=== PATIENT | male | born 1980 | race Caucasian/White ===

== ENCOUNTER 2023-03-26 11:13 | Observation (INO) | payer SELFPAY ==
[2023-03-26] VITALS (10 sets, daily range): BP systolic 152–183; BP diastolic 64–91
[~2023-03-26] VITALS: Ht 165.1 cm; Wt 63.8 kg
[~2023-03-26 11:13] MED LIST: BACTRIM DS1 TAB PO; BETAMETH DIP0.05 % EX; KETOCONAZOLE2 % EX; MUPIROCIN2 % EX; NYSTAT/TRIA2 EX; no home meds
[2023-03-26 12:44] LABS: ALBUMIN 3.7 g/dL (3.2-5.0); ALKALINE PHOSPHATASE 100 u/l (38-126); ANION GAP 8 (6-22 (CALC)); BILIRUBIN, TOTAL 0.4 mg/dL (0.2-1.3); BUN 21 mg/dL (9-20); BUN/CREATININE RATIO 23 (12-20 (CALC)); CALCULATED LDLCHOLESTEROL 115 mg/dL (62-129 (CALC)); CARBON DIOXIDE 30 mmol/l (22-30); CHLORIDE 103 mmol/l (95-108); CHOLESTEROL HDL RATIO 6.4 (<4.4 (CALC)); CREATININE 0.9 mg/dL (0.7-1.3); GFR FOR AFR.AMER. > 60 ML/MIN (>=60 (CALC)); GFR OTHER RACES > 60 ML/MIN (>=60 (CALC)); HDL CHOLESTEROL 27 mg/dL (39.0-59.0); POTASSIUM 4.4 mmol/l (3.5-5.1); SGOT/AST 22 u/l (17-59); SODIUM 136 mmol/l (137-146); TOTAL CHOLESTEROL 171 mg/dl (0-199); TOTAL PROTEIN 6.7 g/dL (6.3-8.2); TOTAL TRIGLYCERIDES 143 mg/dl (0-149); VLDL CHOLESTROL 29 mg/dl (5-56 (CALC))
[2023-03-26 12:45] LABS: BASO% 0.6 % (0-3); EOS% 1.1 % (0-8); HEMATOCRIT 37.4 % (39.0-50.0); IMMATURE GRANULOCYTES 0.2 % (0.0-5.0); LYMPH% 19.9 % (15-41); MEAN CELL VOLUME 86.8 fL CALC (80.0-100.0); MEAN CORPUSCULAR HGB 27.8 pG CALC (26.0-32.0); MEAN CORPUSCULAR HGB CONC 32.1 g/dL CAL (32.0-36.0); MONO% 6.1 % (2-13); NEUT# 10.24 thou/uL (1.82-7.42); NEUT% 72.1 % (42-76); RED BLOOD COUNT 4.31 mill/uL (4.70-6.10); RED CELL DISTRI WIDTH 13.4 % (11.5-15.5)
[2023-03-26 12:48] LABS: PROTHROMBIN TIME 9.6 SECONDS (9.0-12.5)
[2023-03-26 16:08] LABS: URINE BILIRUBIN - DIPSTICK Negative (NEGATIVE); URINE BLOOD DIPSTICK Trace-intact (NEGATIVE); URINE GLUCOSE - DIPSTICK 100 mg/dL (NEGATIVE); URINE KETONE Negative (NEGATIVE); URINE LEUK ESTERASE Negative (NEGATIVE); URINE NITRITE - DIPSTICK Negative (Negative); URINE PH 6.5 (4.5-8.0); URINE PROTEIN - DIPSTICK >=300 mg/dL (NEG-TRACE); URINE SPECIFIC GRAVITY 1.015; URINE UROBILINOGEN - DIPSTICK 0.2 E.U./dL (0.2)
[2023-03-26 16:13] LABS: URINE COLOR Yellow; URINE MUCUS MODERATE hpf (NONE-FEW); URINE RBC 0-2 RBC/hpf (0-5)
[2023-03-27] VITALS (8 sets, daily range): BP systolic 158–179; BP diastolic 67–81
[2023-03-27 06:34] LABS: HEMATOCRIT 33.1 % (39.0-50.0); HEMOGLOBIN 10.8 g/dl (14.0-18.0); MEAN CELL VOLUME 86.4 fL CALC (80.0-100.0); MEAN CORPUSCULAR HGB 28.2 pG CALC (26.0-32.0); MEAN CORPUSCULAR HGB CONC 32.6 g/dL CAL (32.0-36.0); RED BLOOD COUNT 3.83 mill/uL (4.70-6.10); RED CELL DISTRI WIDTH 13.2 % (11.5-15.5)
[2023-03-27 07:09] LABS: ALKALINE PHOSPHATASE 86 u/l (38-126); ANION GAP 7 (6-22 (CALC)); BILIRUBIN, TOTAL 0.3 mg/dL (0.2-1.3); BUN 15 mg/dL (9-20); BUN/CREATININE RATIO 18 (12-20 (CALC)); C-REACTIVE PROTEIN 3.7 mg/dL (0-0.9); CALCULATED LDLCHOLESTEROL 107 mg/dL (62-129 (CALC)); CARBON DIOXIDE 29 mmol/l (22-30); CHLORIDE 106 mmol/l (95-108); CHOLESTEROL HDL RATIO 6.3 (<4.4 (CALC)); CREATININE 0.8 mg/dL (0.7-1.3); GFR FOR AFR.AMER. > 60 ML/MIN (>=60 (CALC)); GFR OTHER RACES > 60 ML/MIN (>=60 (CALC)); HDL CHOLESTEROL 24 mg/dL (39.0-59.0); MAGNESIUM 1.7 mg/dL (1.6-2.3); POTASSIUM 4.2 mmol/l (3.5-5.1); SGOT/AST 17 u/l (17-59); SODIUM 138 mmol/l (137-146); TOTAL CHOLESTEROL 153 mg/dl (0-199); TOTAL PROTEIN 5.4 g/dL (6.3-8.2); TOTAL TRIGLYCERIDES 109 mg/dl (0-149); VLDL CHOLESTROL 22 mg/dl (5-56 (CALC))
[2023-03-27 07:19] LABS: ALBUMIN 2.8 g/dL (3.2-5.0)
[2023-03-28 00:18] VITALS: BP 163/77
[2023-03-28 04:37] VITALS: BP 178/86
[2023-03-28 05:56] LABS: BASO% 0.7 % (0-3); EOS% 2.3 % (0-8); HEMATOCRIT 33.6 % (39.0-50.0); IMMATURE GRANULOCYTES 0.1 % (0.0-5.0); MEAN CELL VOLUME 85.9 fL CALC (80.0-100.0); MEAN CORPUSCULAR HGB 28.1 pG CALC (26.0-32.0); MEAN CORPUSCULAR HGB CONC 32.7 g/dL CAL (32.0-36.0); MONO% 6.6 % (2-13); NEUT# 6.13 thou/uL (1.82-7.42); NEUT% 60.3 % (42-76); RED BLOOD COUNT 3.91 mill/uL (4.70-6.10)
[2023-03-28 06:26] LABS: ALKALINE PHOSPHATASE 90 u/l (38-126); ANION GAP 7 (6-22 (CALC)); BUN 16 mg/dL (9-20); BUN/CREATININE RATIO 18 (12-20 (CALC)); CARBON DIOXIDE 28 mmol/l (22-30); CHLORIDE 106 mmol/l (95-108); CREATININE 0.9 mg/dL (0.7-1.3); GFR FOR AFR.AMER. > 60 ML/MIN (>=60 (CALC)); GFR OTHER RACES > 60 ML/MIN (>=60 (CALC)); MAGNESIUM 1.7 mg/dL (1.6-2.3); POTASSIUM 4.1 mmol/l (3.5-5.1); SGOT/AST 18 u/l (17-59); SODIUM 137 mmol/l (137-146); TOTAL PROTEIN 5.5 g/dL (6.3-8.2)
[2023-03-28 06:34] LABS: BILIRUBIN, TOTAL 0.1 mg/dL (0.2-1.3)
[2023-03-28 07:04] VITALS: BP 132/62
[2023-03-28 10:29] VITALS: BP 152/68
[2023-03-28] MEDS ORDERED: ASPIRIN81 MG PO (12:46)
[2023-03-28] MEDS ORDERED: PLAVIX75 MG PO (12:46)
[2023-03-28] MEDS ORDERED: ATORVASTATIN CA40 MG PO (12:46)
[2023-03-28] MEDS ORDERED: METFORMIN HCL1000 MG PO (12:47)
[2023-03-28] MEDS ORDERED: AMOX/K CLAV875 M1 PO (12:55)
== END 2023-03-28 15:55 | disposition home or self-care (01) | DRG 65 ==
LOC: ED 11:13 → ED-I 14:00 → ED 15:00 → MS2 15:01 → ED-I 15:01 → MS2 18:07
PROVIDERS: Family Medicine; Nurse Practitioner Family; ADMIT Student in an Organized Health Care Education/Training Program; ATTEND Student in an Organized Health Care Education/Training Program
DX: I63.512 Cerebral infarction due to unspecified occlusion or stenosis of left middle cerebral artery (principal); G81.91 Hemiplegia, unspecified affecting right dominant side; R42 Dizziness and giddiness; L03.116 Cellulitis of left lower limb; R29.700 NIHSS score 0; E11.621 Type 2 diabetes mellitus with foot ulcer; L97.529 Non-pressure chronic ulcer of other part of left foot with unspecified severity; E11.65 Type 2 diabetes mellitus with hyperglycemia; I10 Essential (primary) hypertension; E78.5 Hyperlipidemia, unspecified; G93.89 Other specified disorders of brain; T38.3X6A Underdosing of insulin and oral hypoglycemic [antidiabetic] drugs, initial encounter; Z91.120 Patient's intentional underdosing of medication regimen due to financial hardship
CPT/HCPCS: G0378; J1650; J3370; Q9967

== ENCOUNTER 2023-11-21 12:42 | Observation (INO) | payer SELFPAY ==
[2023-11-21] VITALS (17 sets, daily range): BP systolic 152–187; BP diastolic 79–92
[~2023-11-21] VITALS: Ht 165.1 cm; Wt 72.5 kg
[~2023-11-21 12:42] MED LIST changes: +AMOX/K CLAV875 M1 PO; +ASPIRIN81 MG PO; +ATORVASTATIN CA40 MG PO; +METFORMIN HCL1000 MG PO; +PLAVIX75 MG PO
[2023-11-21 13:09] LABS: BASO% 0.4 % (0-3); EOS% 0.6 % (0-8); HEMATOCRIT 31.9 % (39.0-50.0); HEMOGLOBIN 10.3 g/dl (14.0-18.0); IMMATURE GRANULOCYTES 0.3 % (0.0-5.0); LYMPH% 13.3 % (15-41); MEAN CELL VOLUME 88.9 fL CALC (80.0-100.0); MEAN CORPUSCULAR HGB 28.7 pG CALC (26.0-32.0); MEAN CORPUSCULAR HGB CONC 32.3 g/dL CAL (32.0-36.0); MONO% 7.8 % (2-13); NEUT# 10.99 thou/uL (1.82-7.42); NEUT% 77.6 % (42-76); RED BLOOD COUNT 3.59 mill/uL (4.70-6.10); RED CELL DISTRI WIDTH 12.7 % (11.5-15.5)
[2023-11-21] MEDS ORDERED: SODIUM CHLORIDE 0.9% 1,000 ML IV ONE (13:15)
[2023-11-21] MEDS ORDERED: ASPIRIN 81 MG/TAB PO ONE (13:20)
[2023-11-21] MEDS ORDERED: CLOPIDOGREL BISULFATE 75 MG/TAB TAB PO ONE (13:25)
[2023-11-21 13:27] LABS: ALBUMIN 3.6 g/dL (3.2-5.0); ALKALINE PHOSPHATASE 81 u/l (38-126); BUN 32 mg/dL (9-20); CALCULATED LDLCHOLESTEROL 64 mg/dL (62-129 (CALC)); CARBON DIOXIDE 27 mmol/l (22-30); CHLORIDE 107 mmol/l (95-108); CHOLESTEROL HDL RATIO 4.1 (<4.4 (CALC)); HDL CHOLESTEROL 33 mg/dL (39.0-59.0); SGOT/AST 26 u/l (17-59); SODIUM 137 mmol/l (137-146); TOTAL CHOLESTEROL 134 mg/dl (0-199); TOTAL PROTEIN 6.5 g/dL (6.3-8.2); TOTAL TRIGLYCERIDES 185 mg/dl (0-149); VLDL CHOLESTROL 37 mg/dl (5-56 (CALC))
[2023-11-21 13:28] LABS: PROTHROMBIN TIME 9.6 SECONDS (9.0-12.5)
[2023-11-21 13:33] LABS: ANION GAP 8 (6-22 (CALC)); BILIRUBIN, TOTAL 0.4 mg/dL (0.2-1.3); BUN/CREATININE RATIO 15 (12-20 (CALC)); CREATININE 2.1 mg/dL (0.7-1.3); ESTIMATED GFR 40 ML/MIN (>=90 (CALC)); POTASSIUM 5.3 mmol/l (3.5-5.1)
[2023-11-21] MEDS ORDERED: NICOTINE TRANSDERMAL 21 MG/PATCH TD ONE (14:50)
[2023-11-21] MEDS ORDERED: SODIUM CHLORIDE 0.9% 1,000 ML IV PRN (15:35)
[2023-11-21] MEDS ORDERED: MAGNESIUM HYDROXIDE 30 ML UDC PO PRN (15:35)
[2023-11-21] MEDS ORDERED: DEXTROSE 250 ML IV PRN ×2 (15:35→15:40)
[2023-11-21] MEDS ORDERED: ACETAMINOPHEN 325 MG/TAB PO PRN (15:35)
[2023-11-21] MEDS ORDERED: NICOTINE TRANSDERMAL 21 MG/PATCH TD PRN (15:40)
[2023-11-21] MEDS ORDERED: INSULIN LISPRO 100 UNITS/ML ML SC SCH (17:00)
[2023-11-21] MEDS ORDERED: LABETALOL HCL 20 MG/ 4 ML CARTRG IV PRN (18:00)
[2023-11-21] MEDS ORDERED: ENOXAPARIN SODIUM 40 MG/0.4 ML SYR SC SCH (21:00)
[2023-11-21] MEDS ORDERED: ATORVASTATIN CALCIUM 40 MG/TAB PO SCH (21:00)
[2023-11-22] VITALS (8 sets, daily range): BP systolic 133–191; BP diastolic 62–89
[2023-11-22 05:15] LABS: BASO% 0.6 % (0-3); EOS% 1.5 % (0-8); HEMATOCRIT 31.6 % (39.0-50.0); HEMOGLOBIN 10.4 g/dl (14.0-18.0); IMMATURE GRANULOCYTES 0.1 % (0.0-5.0); LYMPH% 20.4 % (15-41); MEAN CORPUSCULAR HGB 29.3 pG CALC (26.0-32.0); MEAN CORPUSCULAR HGB CONC 32.9 g/dL CAL (32.0-36.0); MONO% 8.3 % (2-13); NEUT# 7.52 thou/uL (1.82-7.42); NEUT% 69.1 % (42-76); RED BLOOD COUNT 3.55 mill/uL (4.70-6.10); RED CELL DISTRI WIDTH 12.8 % (11.5-15.5)
[2023-11-22 05:20] LABS: BILIRUBIN, TOTAL 0.3 mg/dL (0.2-1.3); CREATININE 1.5 mg/dL (0.7-1.3); MAGNESIUM 1.7 mg/dL (1.6-2.3); POTASSIUM 4.4 mmol/l (3.5-5.1); TOTAL PROTEIN 5.5 g/dL (6.3-8.2)
[2023-11-22] MEDS ORDERED: ASPIRIN 81 MG/TAB PO SCH (09:00)
[2023-11-22] MEDS ORDERED: CLOPIDOGREL BISULFATE 75 MG/TAB TAB PO SCH (09:00)
[2023-11-23 00:24] VITALS: BP 127/50
[2023-11-23 03:27] VITALS: BP 157/68
[2023-11-23 05:27] LABS: BASO% 0.7 % (0-3); HEMATOCRIT 29.9 % (39.0-50.0); HEMOGLOBIN 9.6 g/dl (14.0-18.0); IMMATURE GRANULOCYTES 0.1 % (0.0-5.0); LYMPH% 30.9 % (15-41); MEAN CELL VOLUME 89.8 fL CALC (80.0-100.0); MEAN CORPUSCULAR HGB 28.8 pG CALC (26.0-32.0); MEAN CORPUSCULAR HGB CONC 32.1 g/dL CAL (32.0-36.0); MONO% 10.1 % (2-13); NEUT# 3.83 thou/uL (1.82-7.42); NEUT% 56.2 % (42-76); RED BLOOD COUNT 3.33 mill/uL (4.70-6.10); RED CELL DISTRI WIDTH 12.6 % (11.5-15.5)
[2023-11-23 05:43] LABS: ALBUMIN 2.8 g/dL (3.2-5.0); BILIRUBIN, TOTAL 0.2 mg/dL (0.2-1.3); CREATININE 1.5 mg/dL (0.7-1.3); MAGNESIUM 1.9 mg/dL (1.6-2.3); TOTAL PROTEIN 5.3 g/dL (6.3-8.2)
[2023-11-23 05:45] LABS: POTASSIUM 5.2 mmol/l (3.5-5.1)
[2023-11-23] MEDS ORDERED: hydrALAZINE HCL 20 MG/ML VIAL(1 ML) IV PRN (06:15)
[2023-11-23 08:36] VITALS: BP 152/67
[2023-11-23] MEDS ORDERED: amLODIPine BESYLATE 5 MG/TAB PO SCH (09:00)
[2023-11-23] MEDS ORDERED: LOSARTAN Potassium 25 MG/TAB PO SCH (09:00)
[2023-11-23] MEDS ORDERED: PLAVIX75 MG PO (10:54)
[2023-11-23] MEDS ORDERED: AMLODIPINE BESYL5 MG PO (10:55)
[2023-11-23] MEDS ORDERED: ASPIRIN81 MG PO (10:56)
== END 2023-11-23 12:28 | disposition home or self-care (01) | DRG 65 ==
LOC: ED 12:42 → ED-I 14:30 → ED 15:05 → MS2 15:06
PROVIDERS: Family Medicine; ADMIT Student in an Organized Health Care Education/Training Program; ATTEND Student in an Organized Health Care Education/Training Program
DX: I63.512 Cerebral infarction due to unspecified occlusion or stenosis of left middle cerebral artery (principal); D68.51 Activated protein C resistance; G81.91 Hemiplegia, unspecified affecting right dominant side; N17.9 Acute kidney failure, unspecified; I63.522 Cerebral infarction due to unspecified occlusion or stenosis of left anterior cerebral artery; R47.01 Aphasia; R29.810 Facial weakness; R29.708 NIHSS score 8; I12.9 Hypertensive chronic kidney disease with stage 1 through stage 4 chronic kidney disease, or unspecified chronic kidney disease; E11.22 Type 2 diabetes mellitus with diabetic chronic kidney disease; N18.31 Chronic kidney disease, stage 3a; E11.65 Type 2 diabetes mellitus with hyperglycemia; I69.398 Other sequelae of cerebral infarction; G93.89 Other specified disorders of brain; E87.5 Hyperkalemia; I08.1 Rheumatic disorders of both mitral and tricuspid valves; F17.200 Nicotine dependence, unspecified, uncomplicated; Z79.84 Long term (current) use of oral hypoglycemic drugs; Z79.02 Long term (current) use of antithrombotics/antiplatelets; Z79.82 Long term (current) use of aspirin; Z91.190 Patient's noncompliance with other medical treatment and regimen due to financial hardship
CPT/HCPCS: G0378; J1650; Q9967